=== PATIENT | female | born 1985 | race Caucasian/White ===

== ENCOUNTER 2021-11-15 22:25 | Inpatient (IN) | payer OTHER ==
[~2021-11-15] VITALS: Ht 165.1 cm; Wt 81.6 kg
[~2021-11-15 22:25] MED LIST: DOCUSATE SODIU100 MG PO; IBUPROFEN600 MG PO; K-DUR TAB 10 M10 MEQ PO; NORCO 5-325 TA1 EACH PO
[2021-11-15 23:17] LABS: HEMOGLOBIN 10.3 gm/dl (12.3-15.3); RED BLOOD COUNT 3.88 M/UL (4.00-5.10); WHITE BLOOD COUNT 10.4 K/UL (4.5-11.0)
[2021-11-16] MEDS ORDERED: COLACE 100MG C100 MG PO (04:09)
[2021-11-16] MEDS ORDERED: IBUPROFEN600 MG PO (04:09)
[2021-11-16] MEDS ORDERED: HYDROCODON-ACE1 EAC4 PO (04:09)
[2021-11-17 07:16] LABS: HEMOGLOBIN 8.5 gm/dl (12.3-15.3)
[2021-11-17] MEDS ORDERED: FERROUS SULFAT325 M2 PO (11:59)
[2021-11-18 04:54] LABS: HEMOGLOBIN 9.1 gm/dl (12.3-15.3)
[2021-11-18 05:07] LABS: RED BLOOD COUNT 3.43 M/UL (4.00-5.10)
== END 2021-11-18 10:30 | disposition home or self-care (01) | DRG 806 ==
LOC: GENOP 22:25 → OB 22:47
PROVIDERS: Obstetrics & Gynecology; ADMIT Obstetrics & Gynecology
PROC: 4A1HXCZ Monitoring of Products of Conception, Cardiac Rate, External Approach (ICD-10-PCS; 2021-11-15)
PROC: 10E0XZZ Delivery of Products of Conception, External Approach (ICD-10-PCS; principal; 2021-11-16)
PROC: 3E0234Z Introduction of Serum, Toxoid and Vaccine into Muscle, Percutaneous Approach (ICD-10-PCS; 2021-11-16)
DX: O42.913 Preterm premature rupture of membranes, unspecified as to length of time between rupture and onset of labor, third trimester (principal); O99.324 Drug use complicating childbirth; Z37.0 Single live birth; Z20.822 Contact with and (suspected) exposure to COVID-19; Z3A.36 36 weeks gestation of pregnancy; O99.334 Smoking (tobacco) complicating childbirth; F17.210 Nicotine dependence, cigarettes, uncomplicated; O69.1XX0 Labor and delivery complicated by cord around neck, with compression, not applicable or unspecified; F15.10 Other stimulant abuse, uncomplicated; Z90.49 Acquired absence of other specified parts of digestive tract; O13.4 Gestational [pregnancy-induced] hypertension without significant proteinuria, complicating childbirth; Z23 Encounter for immunization; Z87.440 Personal history of urinary (tract) infections
CPT/HCPCS: 36415; 80307; 81001; 82800; 83735; 85014; 85018; 85025; 85461; 86850; 86900; 86901; 90715; 96372; G0378; J0595; J0610; J2590; J2790; J3475; J7120; U0002

== ENCOUNTER → 2022-02-14 | Outpatient (CLI) | payer OTHER ==
[~2022-02-14] MED LIST changes: +COLACE 100MG C100 MG PO; +FERROUS SULFAT325 M2 PO; +HYDROCODON-ACE1 EAC4 PO
== END ==
LOC: LAB 15:16
DX: N93.9 Abnormal uterine and vaginal bleeding, unspecified (principal)
CPT/HCPCS: 36415; 84702